=== PATIENT | female | born 1985 ===

== ENCOUNTER 2016-08-22 22:01 | Emergency (ER) | payer MEDICAID ==
[2016-08-22 22:27] VITALS: BP 106/72; RESP 18
[2016-08-22] MEDS ORDERED: Albuterol-Ipratrop 3 mg / 0.5 (3 ml) UD ONE (22:44)
[2016-08-22] MEDS ORDERED: Albuterol-Ipratrop 3 mg / 0.5 (3 ml) UD INH STA (22:52)
--- NOTE | 2016-08-22 23:05 | C.PDOC ---
History Of Present Illness 31 year old patient presents to the ED complaining of a mild, non-productive cough for the past 2 days. Patient also complains of digitally reproducible parasternal pain. Patient denies fever, shortness of breath, vomiting, headache , or rash. Patient has Albuterol at home and uses it without an Aerochamber spacer. Time Seen by Provider: 08/22/16 22:43 Chief Complaint (Nursing): Chest Pain History Per: Patient History/Exam Limitations: no limitations Onset/Duration Of Symptoms: Days (2) Current Symptoms Are (Timing): Still Present Context: Other Severity: Mild Pain Scale Rating Of: 3 Quality: "Pain" Alleviating Factors: None Recent travel outside of the [place]: No Past Medical History Reviewed: Historical Data, Nursing Documentation, Vital Signs Vital Signs: Last Vital Signs Temp 98.8 F 08/22/16 23:24 Pulse 97 H 08/22/16 23:24 Resp 18 08/22/16 23:24 BP 106/72 08/22/16 23:24 Pulse Ox 98 08/23/16 02:31 - Medical History PMH: Migraine Family History: States: Unknown Family Hx - Social History Hx Alcohol Use: No Hx Substance Use: No - Immunization History Hx Tetanus Toxoid Vaccination: Yes Hx Influenza Vaccination: No Hx Pneumococcal Vaccination: No Review Of Systems Except As Marked, All Systems Reviewed And Found Negative. Constitutional: Negative for: Fever Cardiovascular: Positive for: Other (parasternal pain) Respiratory: Positive for: Cough. Negative for: Shortness of Breath Gastrointestinal: Negative for: Vomiting Skin: Negative for: Rash Neurological: Negative for: Headache Physical Exam - Physical Exam Appears: Non-toxic, No Acute Distress Skin: Warm, Dry, No Rash Head: Atraumatic, Normacephalic Eye(s): bilateral: Normal Inspection, PERRL, EOMI Ear(s): Bilateral: Normal Nose: Normal Throat: Normal, No Erythema, No Exudate Neck: Normal ROM, Supple Chest: Symmetrical, Tenderness (bilateral parasternal area) Cardiovascular: Rhythm Regular Respiratory: Normal Breath Sounds, No Rales, No Rhonchi, No Wheezing Gastrointestinal/Abdominal: Soft, No Tenderness Back: Normal Inspection, No CVA Tenderness Extremity: Normal ROM Neurological/Psych: Oriented x3, Normal Speech, Normal Cognition Gait: Steady ED Course And Treatment O2 Sat by Pulse Oximetry: 98 (RA) Pulse Ox Interpretation: Normal Progress Note: Plan: Jeison Quintana Reevaluation Time: 23:05 Reassessment Condition: Improved Medical Decision Making Medical Decision Making: mild cough, clear lungs, mild parasternal costochondritis no abx required MDI refilled. Disposition Doctor Will See Patient In The: Office Counseled Patient/Family Regarding: Studies Performed, Diagnosis - Disposition Referrals: [facility] at [facility] [Outside] Disposition: HOME/ ROUTINE Disposition Time: 23:05 Condition: GOOD Additional Instructions: siempre usa el Albuterol con el Aerochamber Spacer- para que se funciona' mejor. Prescriptions: Spacer, Inhalation [Aerochamber] 1 dev IH DAILY #1 dev Methylprednisolone [Medrol Dose Pack (21 tabs)] 4 mg PO DAILY #21 mg Albuterol HFA [Ventolin HFA 90 mcg/actuation (8 g)] 200 puff IH Q4H PRN #2 puff PRN Reason: Cough Instructions: Acute Cough (ED) Print Language: BULGARIAN - Clinical Impression Clinical Impression: Chest discomfort - Scribe Statement The provider has reviewed the documentation as recorded by the Scribe Valeria Carl Provider Attestation: All medical record entries made by the Scribe were at my direction and personally dictated by me. I have reviewed the chart and agree that the record accurately reflects my personal performance of the history, physical exam, medical decision making, and the department course for this patient. I have also personally directed, reviewed, and agree with the discharge instructions and disposition.
[2016-08-22 23:25] VITALS: PULSE 97; TEMP 98.8; O2SAT 98
== END 2016-08-22 23:30 | disposition home or self-care (01) ==
LOC: C.ER 22:01
DX: R07.89 Other chest pain (principal)

== ENCOUNTER 2018-02-26 08:24 | Emergency (ER) | payer MEDICAID ==
[2018-02-26 08:34] VITALS: RESP 18; O2SAT 95
[2018-02-26] MEDS ORDERED: Albuterol 0.083% Inhal Sol (2.5 mg/3 mL) UD IH STA (09:03)
[2018-02-26] MEDS ORDERED: Albuterol 0.083% Inhal Sol (2.5 mg/3 mL) UD ONE (09:19)
[2018-02-26] MEDS ORDERED: Albuterol-Ipratrop 3 mg / 0.5 (3 ml) UD INH STA (09:59)
--- NOTE | 2018-02-26 10:14 | RAD ---
HISTORY: Cough COMPARISON: 02/03/2016. TECHNIQUE: Chest PA and lateral FINDINGS: LINES AND TUBES: None. LUNG AND PLEURA: The lungs are well inflated and clear. No pleural effusion or pneumothorax. HEART AND MEDIASTINUM: The heart is not enlarged. The hilar and mediastinal contours are within normal limits. SKELETAL STRUCTURES: The bony structures are within normal limits for the patient's age. VISUALIZED UPPER ABDOMEN: Normal. OTHER FINDINGS: None. IMPRESSION: No active pulmonary disease.
[2018-02-26] MEDS ORDERED: Albuterol-Ipratrop 3 mg / 0.5 (3 ml) UD ONE (10:18)
--- NOTE | 2018-02-26 11:00 | C.PDOC ---
History Of Present Illness 32 y/o female with history of bronchitis presents to ED with c/o nonproductive cough since last night associated with mild wheezing and pleuritic back pain. Patient denies fever, leg edema, palpitations, chest pain, abdominal pain, history of COPD/Asthma. Time Seen by Provider: 02/26/18 08:45 Chief Complaint (Nursing): Cough, Cold, Congestion History Per: Patient History/Exam Limitations: no limitations Onset/Duration Of Symptoms: Days Current Symptoms Are (Timing): Still Present Associated Symptoms: Cough Severity: Moderate Past Medical History Reviewed: Historical Data, Nursing Documentation, Vital Signs Vital Signs: Last Vital Signs Temp 98.3 F 02/26/18 08:32 Pulse 114 H 02/26/18 08:32 Resp 18 02/26/18 08:32 BP 130/84 02/26/18 08:32 Pulse Ox 95 02/26/18 08:32 - Medical History PMH: Bronchitis (2 YEARS AGO PER PATIENT), Migraine Surgical History: No Surg Hx Family History: States: No Known Family Hx - Social History Hx Alcohol Use: No Hx Substance Use: No - Immunization History Hx Tetanus Toxoid Vaccination: Yes Hx Influenza Vaccination: No Hx Pneumococcal Vaccination: No Review Of Systems Constitutional: Negative for: Fever, Chills Cardiovascular: Negative for: Chest Pain Respiratory: Positive for: Cough, Shortness of Breath, Wheezing Gastrointestinal: Negative for: Nausea, Vomiting, Abdominal Pain Musculoskeletal: Positive for: Back Pain Skin: Negative for: Rash Physical Exam - Physical Exam Appears: Well, Non-toxic, No Acute Distress, Other (speaking in full sentences) Skin: Warm, Dry, No Rash Head: Normacephalic Eye(s): bilateral: Normal Inspection Oral Mucosa: Moist Neck: Supple Cardiovascular: Rhythm Regular, No Murmur, Other (Tachycardic) Respiratory: No Accessory Muscle Use, No Rales, No Rhonchi, Wheezing (Mild expiratory wheezing B/L ) Gastrointestinal/Abdominal: Normal Exam, Bowel Sounds, Soft, No Tenderness Back: No CVA Tenderness, No Vertebral Tenderness, No Paraspinal Tenderness Extremity: Normal ROM, No Pedal Edema, No Calf Tenderness Pulses: Left Dorsalis Pedis: Normal, Right Dorsalis Pedis: Normal Neurological/Psych: Oriented x3 ED Course And Treatment ECG: Interpreted By Me, Viewed By Me (sinus tachycardia 105 bpm, normal axis, no acute ST/T waves changes) ECG Interpretation: Abnormal O2 Sat by Pulse Oximetry: 95 (RA) Pulse Ox Interpretation: Normal - Radiology CXR: Interpreted by Me, Viewed By Me CXR Interpretation: Yes: No Acute Disease. No: Infiltrates Progress Note: Patient given PO Prednisone and albuterol treatments. CXR ordered and reviewed. EKG done at triage. Reevaluation Time: 11:20 Reassessment Condition: Improved (On reassessment, patient is resting comfortably and states she feels better. On exam, patient has good air entry B/L without wheezing or accessory wheezing. Rxs for prednisone and albuterol given, and patient instructed to follow up with PMD/clinic in 1-2 days. She understands she should return to ED if symptoms worsen.) Disposition Counseled Patient/Family Regarding: Studies Performed, Diagnosis, Need For Followup, Rx Given - Disposition Referrals: [facility] at [facility] [Outside] Disposition: HOME/ ROUTINE Disposition Time: 11:20 Condition: STABLE Additional Instructions: FOLLOW UP WITH MEDICAL CLINIC IN 1-2 DAYS USE MEDICATIONS DIRECTED RETURN TO EMERGENCY ROOM IF SYMPTOMS WORSEN SEGUIMIENTO CON CLNICA MDICA EN 1-2 LAMBERT USE MEDICAMENTOS SEGN LO INDICADO REGRESE AL STELLA DE EMERGENCIA SI LOS SNTOMAS EMPEORAN Prescriptions: RX: Albuterol HFA [Ventolin HFA 90 mcg/actuation (8 g)] 0.09 mg IH Q4 PRN #1 puff PRN Reason: Wheezing RX: predniSONE [predniSONE Tab] 40 mg PO DAILY #6 tab Instructions: Acute Bronchitis, Adult (DC), Wheezing Forms: [employer] (Italian) Print Language: ICELANDIC - Clinical Impression Clinical Impression: Bronchitis, Bronchospasm - Scribe Statement The provider has reviewed the documentation as recorded by the Flex Page All medical record entries made by the Julesibgarry were at my direction and personally dictated by me. I have reviewed the chart and agree that the record accurately reflects my personal performance of the history, physical exam, medical decision making, and the department course for this patient. I have also personally directed, reviewed, and agree with the discharge instructions and disposition.
[2018-02-26 11:23] VITALS: BP 110/72; PULSE 95; TEMP 98.5
--- NOTE | 2018-02-28 12:47 | CARD ---
APPROVED REPORT Date of service: 02/26/2018 EKG Measurement Heart [id number] <Conclusion> Sinus tachycardia Otherwise normal ECG
== END 2018-02-26 11:23 | disposition home or self-care (01) ==
LOC: C.ER 08:24
DX: J40 Bronchitis, not specified as acute or chronic (principal); J98.01 Acute bronchospasm